=== PATIENT | female | born 2000 | race Two or more races ===

== ENCOUNTER 2022-08-07 23:12 | Emergency (ER) | payer SELFPAY ==
[~2022-08-07] VITALS: Ht 162.6 cm; Wt 67.6 kg
[2022-08-07 23:13] VITALS: BP 109/69
== END 2022-08-08 01:53 | disposition left against medical advice (07) ==
LOC: M ED 23:12
DX: Z53.21 Procedure and treatment not carried out due to patient leaving prior to being seen by health care provider (principal)

== ENCOUNTER 2022-10-07 07:29 | Emergency (ER) | payer OTHER, SELFPAY ==
[~2022-10-07] VITALS: Ht 162.6 cm; Wt 68.6 kg
[2022-10-07] MEDS ORDERED: NS 1,000 ML IV ONE (09:45)
[2022-10-07 10:50] LABS: BASO # 0.1 10^3/uL (0.0-0.2); BASO % 0.8 % (0.0-1.0); EOS # 0.1 10^3/uL (0.0-0.5); EOS % 1.4 % (0.0-3.0); HEMATOCRIT 38.2 % (36.0-47.0); HEMOGLOBIN 12.7 g/dl (12.0-15.5); LYMPH # 2.9 10^3/uL (1.5-5.0); LYMPH % 44.7 % (24.0-44.0); MEAN CORPUSCULAR HEMOGLOBIN 29.1 pg (27.0-33.0); MEAN CORPUSCULAR HGB CONC 33.2 g/dl (32.0-36.5); MEAN CORPUSCULAR VOLUME 87.4 fl (80.0-96.0); MONO # 0.6 10^3/uL (0.0-0.8); MONO % 9.6 % (2.0-8.0); NEUTROPHILS # 2.8 10^3/uL (1.5-8.5); NEUTROPHILS % 43.2 % (36.0-66.0); PLATELET COUNT, AUTOMATED 310 10^3/uL (150-450); RED BLOOD COUNT 4.37 10^6/uL (4.00-5.40); WHITE BLOOD COUNT 6.5 10^3/uL (4.0-10.0)
[2022-10-07 11:19] LABS: LIPASE 36 U/L (12-53)
[2022-10-07 11:23] LABS: HCG, SERUM QUALITATIVE NEGATIVE (NEGATIVE)
[2022-10-07 11:25] LABS: ALBUMIN 3.8 G/DL (3.2-5.2); ALKALINE PHOSPHATASE 97 U/L (46-116); ALT/SGPT 23 U/L (7.0-40); AST/SGOT 23 U/L (<34); BILIRUBIN,DIRECT 0.5 MG/DL (<0.4); BILIRUBIN,TOTAL 1.8 MG/DL (0.3-1.2); BLOOD UREA NITROGEN 12 MG/DL (9-23); CALCIUM LEVEL 8.6 MG/DL (8.5-10.1); CARBON DIOXIDE LEVEL 23 MMOL/L (20-31); CHLORIDE LEVEL 107 MMOL/L (98-107); CREATININE FOR GFR 0.79 MG/DL (0.55-1.30); GLOMERULAR FILTRATION RATE > 60.0 (>60); GLUCOSE, FASTING 89 MG/DL (60-100); POTASSIUM SERUM 4.3 MMOL/L (3.5-5.1); SODIUM LEVEL 138 MMOL/L (136-145); TOTAL PROTEIN 6.7 G/DL (5.7-8.2)
[2022-10-07 15:35] VITALS: BP 126/72
[2022-10-07 15:57] LABS: GC DNA AMPLIFICATION NEGATIVE (NEGATIVE)
== END 2022-10-07 15:37 | disposition home or self-care (01) ==
LOC: M ED 07:29
DX: N93.9 Abnormal uterine and vaginal bleeding, unspecified (principal); M79.18 Myalgia, other site; R10.2 Pelvic and perineal pain; R53.83 Other fatigue; G90.A Postural orthostatic tachycardia syndrome [POTS]; R00.1 Bradycardia, unspecified; F41.9 Anxiety disorder, unspecified; F32.A Depression, unspecified; F12.10 Cannabis abuse, uncomplicated; Z88.0 Allergy status to penicillin

== ENCOUNTER 2023-01-17 19:33 | Emergency (ER) | payer OTHER ==
[~2023-01-17] VITALS: Ht 162.6 cm; Wt 67.7 kg
[2023-01-17 19:34] VITALS: BP 125/75; TEMP 97.4; O2SAT 100
[2023-01-17 20:30] LABS: LIPASE 67 U/L (12-53)
[2023-01-17 20:32] LABS: ALBUMIN 4.1 G/DL (3.2-5.2); ALKALINE PHOSPHATASE 100 U/L (46-116); ALT/SGPT 31 U/L (7.0-40); AST/SGOT 13 U/L (<34); BILIRUBIN,DIRECT 0.4 MG/DL (<0.4); BILIRUBIN,TOTAL 1.1 MG/DL (0.3-1.2); TOTAL PROTEIN 7.1 G/DL (5.7-8.2)
[2023-01-17 20:35] LABS: BASO # 0.1 10^3/uL (0.0-0.2); BASO % 0.5 % (0.0-1.0); EOS # 0.1 10^3/uL (0.0-0.5); EOS % 1.5 % (0.0-3.0); HEMOGLOBIN 13.6 g/dl (12.0-15.5); LYMPH # 3.3 10^3/uL (1.5-5.0); LYMPH % 35.9 % (24.0-44.0); MEAN CORPUSCULAR HEMOGLOBIN 28.6 pg (27.0-33.0); MEAN CORPUSCULAR HGB CONC 33.2 g/dl (32.0-36.5); MEAN CORPUSCULAR VOLUME 86.1 fl (80.0-96.0); MONO # 0.7 10^3/uL (0.0-0.8); MONO % 7.7 % (2.0-8.0); NEUTROPHILS % 54.2 % (36.0-66.0); PLATELET COUNT, AUTOMATED 266 10^3/uL (150-450); RED BLOOD COUNT 4.76 10^6/uL (4.00-5.40); WHITE BLOOD COUNT 9.2 10^3/uL (4.0-10.0)
[2023-01-17] MEDS ORDERED: ACETAMINOPHEN 325 MG TAB PO ONE (20:40)
[2023-01-17 20:48] LABS: BLOOD UREA NITROGEN 13 MG/DL (9-23); CALCIUM LEVEL 8.9 MG/DL (8.5-10.1); CARBON DIOXIDE LEVEL 24 MMOL/L (20-31); CHLORIDE LEVEL 108 MMOL/L (98-107); GLOMERULAR FILTRATION RATE > 60.0 (>60); GLUCOSE, FASTING 115 MG/DL (60-100); POTASSIUM SERUM 3.8 MMOL/L (3.5-5.1); SODIUM LEVEL 138 MMOL/L (136-145)
[2023-01-17 20:51] LABS: HCG, SERUM QUANTITATIVE 11974.3 MIU/ML (<4.2)
== END 2023-01-17 22:34 | disposition home or self-care (01) ==
LOC: M ED 19:33
DX: O26.891 Other specified pregnancy related conditions, first trimester (principal); R10.9 Unspecified abdominal pain; Z88.0 Allergy status to penicillin; Z3A.01 Less than 8 weeks gestation of pregnancy

== ENCOUNTER 2023-01-19 17:54 | Emergency (ER) | payer OTHER ==
[~2023-01-19] VITALS: Ht 162.6 cm; Wt 66.9 kg
[2023-01-19 17:54] VITALS: BP 118/64; TEMP 97.6; O2SAT 99
== END 2023-01-19 19:44 | disposition home or self-care (01) ==
LOC: M ED 17:54
DX: O26.891 Other specified pregnancy related conditions, first trimester (principal); R10.2 Pelvic and perineal pain; Z3A.01 Less than 8 weeks gestation of pregnancy; Z88.0 Allergy status to penicillin

== ENCOUNTER 2023-03-06 09:42 | Emergency (ER) | payer OTHER ==
[~2023-03-06] VITALS: Ht 162.6 cm; Wt 64.3 kg
[2023-03-06 12:00] LABS: BASO % 0.4 % (0.0-1.0); EOS # 0.1 10^3/uL (0.0-0.5); EOS % 0.8 % (0.0-3.0); HEMATOCRIT 38.6 % (36.0-47.0); HEMOGLOBIN 13.1 g/dl (12.0-15.5); LYMPH # 1.9 10^3/uL (1.5-5.0); LYMPH % 22.9 % (24.0-44.0); MEAN CORPUSCULAR HEMOGLOBIN 29.4 pg (27.0-33.0); MEAN CORPUSCULAR HGB CONC 33.9 g/dl (32.0-36.5); MEAN CORPUSCULAR VOLUME 86.7 fl (80.0-96.0); MONO # 0.6 10^3/uL (0.0-0.8); MONO % 7.5 % (2.0-8.0); NEUTROPHILS # 5.7 10^3/uL (1.5-8.5); PLATELET COUNT, AUTOMATED 213 10^3/uL (150-450); RED BLOOD COUNT 4.45 10^6/uL (4.00-5.40); WHITE BLOOD COUNT 8.4 10^3/uL (4.0-10.0)
[2023-03-06 12:30] LABS: LIPASE 51 U/L (12-53)
[2023-03-06 12:31] LABS: AMYLASE 44 U/L (30-118)
[2023-03-06 12:32] LABS: ALBUMIN 3.8 G/DL (3.2-5.2); ALKALINE PHOSPHATASE 73 U/L (46-116); ALT/SGPT 15 U/L (7.0-40); AST/SGOT < 8 U/L (<34); BILIRUBIN,DIRECT 0.6 MG/DL (<0.4); BILIRUBIN,TOTAL 1.7 MG/DL (0.3-1.2); BLOOD UREA NITROGEN 10 MG/DL (9-23); CALCIUM LEVEL 9.1 MG/DL (8.5-10.1); CARBON DIOXIDE LEVEL 22 MMOL/L (20-31); CHLORIDE LEVEL 104 MMOL/L (98-107); CREATININE FOR GFR 0.53 MG/DL (0.55-1.30); GLOMERULAR FILTRATION RATE > 60.0 (>60); GLUCOSE, FASTING 90 MG/DL (60-100); POTASSIUM SERUM 3.9 MMOL/L (3.5-5.1); SODIUM LEVEL 136 MMOL/L (136-145)
[2023-03-06 12:45] LABS: HCG, SERUM QUANTITATIVE 75143.7 MIU/ML (<4.2)
[2023-03-06 14:12] VITALS: BP 99/55; TEMP 96.2; O2SAT 100
== END 2023-03-06 14:16 | disposition home or self-care (01) ==
LOC: M ED 09:42
DX: O26.891 Other specified pregnancy related conditions, first trimester (principal); R10.2 Pelvic and perineal pain; G90.A Postural orthostatic tachycardia syndrome [POTS]; Z88.0 Allergy status to penicillin; Z3A.12 12 weeks gestation of pregnancy

== ENCOUNTER 2023-05-01 17:58 | Outpatient (CLI) | payer OTHER ==
[~2023-05-01] VITALS: Ht 162.6 cm; Wt 66.6 kg
[2023-05-01] MEDS ORDERED: PRENTAB9 PO (18:23)
[2023-05-01] MEDS ORDERED: HOME MED LIST COMPLETE! XX SCH (18:25)
[2023-05-01 18:29] VITALS: BP 104/56
[2023-05-01] MEDS ORDERED: diphenhydrAMINE 25MG CAP PO ONE (19:05)
[2023-05-01 19:27] VITALS: BP 141/64
[2023-05-01 19:28] VITALS: BP 111/57
[2023-05-01 19:55] LABS: ALBUMIN 3.1 G/DL (3.2-5.2); ALKALINE PHOSPHATASE 79 U/L (46-116); ALT/SGPT 36 U/L (7.0-40); AST/SGOT 30 U/L (<34); BILIRUBIN,TOTAL 0.8 MG/DL (0.3-1.2); BLOOD UREA NITROGEN 8 MG/DL (9-23); CALCIUM LEVEL 8.6 MG/DL (8.5-10.1); CARBON DIOXIDE LEVEL 24 MMOL/L (20-31); CHLORIDE LEVEL 105 MMOL/L (98-107); CREATININE FOR GFR 0.49 MG/DL (0.55-1.30); GLOMERULAR FILTRATION RATE > 60.0 (>60); GLUCOSE, FASTING 88 MG/DL (60-100); POTASSIUM SERUM 4.9 MMOL/L (3.5-5.1); SODIUM LEVEL 137 MMOL/L (136-145); TOTAL PROTEIN 6.4 G/DL (5.7-8.2)
== END 2023-05-01 19:28 | disposition home or self-care (01) ==
LOC: M LDO 17:58
PROVIDERS: ATTEND Obstetrics & Gynecology
DX: O99.712 Diseases of the skin and subcutaneous tissue complicating pregnancy, second trimester (principal); L29.9 Pruritus, unspecified; Z3A.21 21 weeks gestation of pregnancy; Z88.0 Allergy status to penicillin
CPT/HCPCS: 36415; 59025; 80053; 82239; G0463

== ENCOUNTER 2023-05-09 10:59 | Outpatient (CLI) | payer OTHER ==
[~2023-05-09 10:59] MED LIST: PRENTAB9 PO
[2023-05-09 12:03] LABS: HEMATOCRIT 34.9 % (36.0-47.0); HEMOGLOBIN 12.1 g/dl (12.0-15.5); MEAN CORPUSCULAR HEMOGLOBIN 30.7 pg (27.0-33.0); MEAN CORPUSCULAR HGB CONC 34.7 g/dl (32.0-36.5); MEAN CORPUSCULAR VOLUME 88.6 fl (80.0-96.0); PLATELET COUNT, AUTOMATED 185 10^3/uL (150-450); RED BLOOD COUNT 3.94 10^6/uL (4.00-5.40); WHITE BLOOD COUNT 11.5 10^3/uL (4.0-10.0)
[2023-05-09] MEDS ORDERED: FLUCONAZOLE 50MG TABLET PO ONE (12:05)
[2023-05-09 12:31] LABS: APPEARANCE, URINE HAZY (CLEAR); BACTERIA, URINE AUTO NEGATIVE (NEGATIVE); BILIRUBIN, URINE AUTO NEGATIVE (NEGATIVE); BLOOD, URINE BLOOD NEGATIVE (NEGATIVE); COLOR, URINE YELLOW (YELLOW); GLUCOSE, URINE (UA) AUTO NEGATIVE (NEGATIVE); KETONE, URINE AUTO NEGATIVE (NEGATIVE); LEUKOCYTE ESTERASE, URINE AUTO 3+ (NEGATIVE); MUCUS, URINE SMALL (NEGATIVE); NITRITE, URINE AUTO NEGATIVE (NEGATIVE); PROTEIN, URINE AUTO NEGATIVE (NEGATIVE); RBC, URINE AUTO 0 /HPF (0-3); SPECIFIC GRAVITY URINE AUTO 1.016 (1.002-1.035); SQUAMOUS EPITHELIAL CELL UR AU 8 /HPF (0-6); UROBILINOGEN, URINE AUTO 0.2 mg/dL (0.0-2.0); WBC, URINE AUTO 8 /HPF (0-3)
[2023-05-09] MEDS ORDERED: FOSFOMYCIN TROMETHAMINE 3 GM POWDER PACKET (MONUROL) PO ONE (13:00)
[2023-05-09 14:13] LABS: GC DNA AMPLIFICATION NEGATIVE (NEGATIVE)
[2023-05-10 10:43] LABS: LIPASE 33 U/L (13-60)
[2023-05-10 10:44] LABS: ALBUMIN 3.7 G/DL (3.9-5.0); ALKALINE PHOSPHATASE 80 U/L (35-104); ALT/SGPT 11 U/L (1-33); AST/SGOT 12 U/L (5-40); BILIRUBIN,TOTAL 0.7 MG/DL (0.2-1.3); BLOOD UREA NITROGEN 8 MG/DL (7-21); CALCIUM LEVEL 9.1 MG/DL (8.4-10.2); CARBON DIOXIDE LEVEL 22 MEQ/L (22-30); CHLORIDE LEVEL 104 MEQ/L (98-107); CREATININE FOR GFR 0.4 MG/DL (0.7-1.5); GLOMERULAR FILTRATION RATE > 60.0 (>60); GLUCOSE, FASTING 79 MG/DL (70-99); POTASSIUM SERUM 4.3 MEQ/L (3.6-5.0); SODIUM LEVEL 137 MEQ/L (134-153); TOTAL PROTEIN 6.3 G/DL (6.3-8.2)
== END 2023-05-09 13:02 | disposition home or self-care (01) ==
LOC: M LDO 10:59
PROVIDERS: ATTEND Obstetrics & Gynecology
DX: O23.592 Infection of other part of genital tract in pregnancy, second trimester (principal); O23.42 Unspecified infection of urinary tract in pregnancy, second trimester; Z3A.22 22 weeks gestation of pregnancy; Z88.0 Allergy status to penicillin
CPT/HCPCS: 59025; 76815; 80053; 81001; 83690; 85027; 87661; 87810; 87850; G0463

== ENCOUNTER 2023-06-07 13:39 | Outpatient (CLI) | payer OTHER ==
[~2023-06-07] VITALS: Ht 162.6 cm; Wt 69.4 kg
[2023-06-07 14:02] VITALS: BP 116/63
[2023-06-07] MEDS ORDERED: HOME MED LIST COMPLETE! XX SCH (14:10)
== END 2023-06-07 14:49 | disposition home or self-care (01) ==
LOC: M LDO 13:39
PROVIDERS: ATTEND Obstetrics & Gynecology
DX: O26.892 Other specified pregnancy related conditions, second trimester (principal); M79.605 Pain in left leg; Z3A.25 25 weeks gestation of pregnancy; Z88.0 Allergy status to penicillin
CPT/HCPCS: 59025; G0463

== ENCOUNTER → 2023-10-22 | Outpatient (REF) | LOC: M LAB 13:18 | PROVIDERS: ATTEND Nurse Practitioner Adult Health | DX: Z02.89 Encounter for other administrative examinations (principal) ==

== ENCOUNTER 2024-03-09 09:22 | Emergency (ER) | payer OTHER ==
[~2024-03-09] VITALS: Ht 162.6 cm; Wt 74.3 kg
[2024-03-09 11:08] LABS: BASO # 0.1 10^3/uL (0.0-0.2); BASO % 0.9 % (0.0-1.0); EOS # 0.1 10^3/uL (0.0-0.5); EOS % 1.4 % (0.0-3.0); HEMATOCRIT 39.7 % (36.0-47.0); HEMOGLOBIN 13.1 g/dl (12.0-15.5); LYMPH # 2.6 10^3/uL (1.5-5.0); LYMPH % 40.3 % (24.0-44.0); MEAN CORPUSCULAR HEMOGLOBIN 28.7 pg (27.0-33.0); MEAN CORPUSCULAR VOLUME 86.9 fl (80.0-96.0); MONO # 0.6 10^3/uL (0.0-0.8); MONO % 9.2 % (2.0-8.0); NEUTROPHILS # 3.1 10^3/uL (1.5-8.5); PLATELET COUNT, AUTOMATED 228 10^3/uL (150-450); RED BLOOD COUNT 4.57 10^6/uL (4.00-5.40); WHITE BLOOD COUNT 6.4 10^3/uL (4.0-10.0)
[2024-03-09] MEDS: KETOROLAC 30 MG/ML 1ML VIAL IV ONE (11:26)
[2024-03-09 11:42] LABS: LIPASE 54 U/L (12-53)
[2024-03-09 11:43] LABS: ALKALINE PHOSPHATASE 102 U/L (46-116); ALT/SGPT 22 U/L (7.0-40); AST/SGOT 15 U/L (<34); BILIRUBIN,DIRECT 0.4 MG/DL (<0.4); BILIRUBIN,TOTAL 1.1 MG/DL (0.3-1.2); BLOOD UREA NITROGEN 15 MG/DL (9-23); CALCIUM LEVEL 9.2 MG/DL (8.5-10.1); CARBON DIOXIDE LEVEL 24 MMOL/L (20-31); CHLORIDE LEVEL 109 MMOL/L (98-107); CREATININE FOR GFR 0.74 MG/DL (0.55-1.30); GLOMERULAR FILTRATION RATE > 60.0 (>60); GLUCOSE, FASTING 97 MG/DL (60-100); HCG, SERUM QUANTITATIVE < 2.6 MIU/ML (<4.2); POTASSIUM SERUM 4.3 MMOL/L (3.5-5.1); SODIUM LEVEL 138 MMOL/L (136-145); TOTAL PROTEIN 7.1 G/DL (5.7-8.2)
[2024-03-09] MEDS ORDERED: ISOVUE-370 76% 100ML VIAL As Ordered ONE (12:00)
[2024-03-09] MEDS ORDERED: KETO10TAB PO (12:50)
[2024-03-09 12:56] VITALS: BP 112/55; TEMP 96.8; O2SAT 100
== END 2024-03-09 13:02 | disposition home or self-care (01) ==
LOC: M ED 09:22
DX: R10.84 Generalized abdominal pain (principal); N28.1 Cyst of kidney, acquired; G90.A Postural orthostatic tachycardia syndrome [POTS]; Z88.0 Allergy status to penicillin; Z79.899 Other long term (current) drug therapy; Z97.5 Presence of (intrauterine) contraceptive device
CPT/HCPCS: 74177; 76856; 80048; 80076; 81001; 83690; 84702; 85025; 87086; 93976; 96374; 99284; J1885; Q9967

== ENCOUNTER 2024-03-30 03:41 | Emergency (ER) | payer OTHER ==
[~2024-03-30] VITALS: Ht 162.6 cm; Wt 73.7 kg
[~2024-03-30 03:41] MED LIST changes: +KETO10TAB PO
[2024-03-30 03:42] VITALS: BP 104/59; TEMP 98.5; O2SAT 98
== END 2024-03-30 05:29 | disposition left against medical advice (07) ==
LOC: M ED 03:41
DX: Z53.21 Procedure and treatment not carried out due to patient leaving prior to being seen by health care provider (principal)

== ENCOUNTER 2024-06-01 07:25 | Emergency (ER) | payer OTHER ==
[~2024-06-01] VITALS: Ht 162.6 cm; Wt 74.8 kg
[2024-06-01 10:02] LABS: BASO % 0.4 % (0.0-1.0); EOS # 0.1 10^3/uL (0.0-0.5); EOS % 1.2 % (0.0-3.0); HEMATOCRIT 40.8 % (36.0-47.0); HEMOGLOBIN 13.7 g/dl (12.0-15.5); LYMPH # 3.1 10^3/uL (1.5-5.0); LYMPH % 34.3 % (24.0-44.0); MEAN CORPUSCULAR HEMOGLOBIN 29.5 pg (27.0-33.0); MEAN CORPUSCULAR HGB CONC 33.6 g/dl (32.0-36.5); MEAN CORPUSCULAR VOLUME 87.9 fl (80.0-96.0); MONO # 0.9 10^3/uL (0.0-0.8); MONO % 9.6 % (2.0-8.0); NEUTROPHILS # 4.9 10^3/uL (1.5-8.5); NEUTROPHILS % 54.3 % (36.0-66.0); PLATELET COUNT, AUTOMATED 224 10^3/uL (150-450); RED BLOOD COUNT 4.64 10^6/uL (4.00-5.40); WHITE BLOOD COUNT 9.1 10^3/uL (4.0-10.0)
[2024-06-01 10:28] LABS: LIPASE 49 U/L (12-53)
[2024-06-01 10:30] LABS: ALKALINE PHOSPHATASE 95 U/L (35-104); ALT/SGPT 15 U/L (7.0-40); AST/SGOT 9 U/L (<34); BILIRUBIN,DIRECT 0.4 MG/DL (<0.4); BILIRUBIN,TOTAL 1.2 MG/DL (0.3-1.2); BLOOD UREA NITROGEN 14 MG/DL (9-23); CALCIUM LEVEL 9.3 MG/DL (8.5-10.1); CARBON DIOXIDE LEVEL 24 MMOL/L (20-31); CHLORIDE LEVEL 108 MMOL/L (98-107); GLOMERULAR FILTRATION RATE > 60.0 (>60); GLUCOSE, FASTING 99 MG/DL (60-100); POTASSIUM SERUM 4.1 MMOL/L (3.5-5.1); SODIUM LEVEL 139 MMOL/L (136-145); TOTAL PROTEIN 7.5 G/DL (5.7-8.2)
[2024-06-01 10:32] LABS: HCG, SERUM QUANTITATIVE < 2.6 MIU/ML (<4.2)
[2024-06-01] MEDS ORDERED: HOME MED LIST COMPLETE! XX SCH (11:05)
[2024-06-01 12:15] VITALS: BP 108/62
[2024-06-01 12:16] VITALS: TEMP 97.6; O2SAT 98
[2024-06-01] MEDS ORDERED: IBUP-1022 PO (12:16)
== END 2024-06-01 12:32 | disposition home or self-care (01) ==
LOC: M ED 07:25
DX: N83.291 Other ovarian cyst, right side (principal); G90.A Postural orthostatic tachycardia syndrome [POTS]; Z88.0 Allergy status to penicillin; Z97.5 Presence of (intrauterine) contraceptive device; Z79.1 Long term (current) use of non-steroidal anti-inflammatories (NSAID)

== ENCOUNTER 2024-07-02 15:03 | Emergency (ER) | payer OTHER ==
[~2024-07-02] VITALS: Ht 162.6 cm; Wt 76.0 kg
[~2024-07-02 15:03] MED LIST changes: +IBUP-1022 PO
[2024-07-02 16:20] LABS: URINE PREG TEST NEGATIVE (NEGATIVE)
[2024-07-02] MEDS ORDERED: FLUC150T9 PO (16:26)
[2024-07-02 16:29] VITALS: BP 118/84; TEMP 98.6; O2SAT 99
[2024-07-02 17:32] LABS: Trichomonas vaginalis (AMP) NOT DETECTED (NEGATIVE)
[2024-07-02 17:56] LABS: GC DNA AMPLIFICATION NEGATIVE (NEGATIVE)
== END 2024-07-02 16:37 | disposition home or self-care (01) ==
LOC: M ED 15:03
DX: B37.31 Acute candidiasis of vulva and vagina (principal); Z88.0 Allergy status to penicillin; Z79.2 Long term (current) use of antibiotics

== ENCOUNTER 2024-07-25 16:37 | Emergency (ER) | payer OTHER ==
[~2024-07-25] VITALS: Ht 162.6 cm; Wt 77.5 kg
[~2024-07-25 16:37] MED LIST changes: +FLUC150T9 PO
[2024-07-25 17:36] LABS: BASO # 0.1 10^3/uL (0.0-0.2); BASO % 0.6 % (0.0-1.0); EOS # 0.1 10^3/uL (0.0-0.5); EOS % 1.2 % (0.0-3.0); HEMATOCRIT 44.5 % (36.0-47.0); LYMPH # 2.9 10^3/uL (1.5-5.0); LYMPH % 37.6 % (24.0-44.0); MEAN CORPUSCULAR HEMOGLOBIN 29.9 pg (27.0-33.0); MEAN CORPUSCULAR HGB CONC 33.7 g/dl (32.0-36.5); MEAN CORPUSCULAR VOLUME 88.6 fl (80.0-96.0); MONO # 0.7 10^3/uL (0.0-0.8); MONO % 9.3 % (2.0-8.0); PLATELET COUNT, AUTOMATED 270 10^3/uL (150-450); RED BLOOD COUNT 5.02 10^6/uL (4.00-5.40); WHITE BLOOD COUNT 7.7 10^3/uL (4.0-10.0)
[2024-07-25 17:43] LABS: KETONE, URINE AUTO RFX TRACE mg/dL (NEGATIVE); MUCUS, URINE RFX MODERATE (NEGATIVE); NITRITE, URINE AUTO RFX NEGATIVE (NEGATIVE); RBC, URINE AUTO RFX 0 /HPF (0-3); SQUAM EPITHELIAL CELL UR AURFX 32 /HPF (0-6)
[2024-07-25 17:44] LABS: LEUKOCYTE ESTERASE UR AUTO RFX 1+ (NEGATIVE)
[2024-07-25 18:04] LABS: LIPASE 69 U/L (12-53)
[2024-07-25 18:06] LABS: ALBUMIN 4.3 G/DL (3.2-5.2); ALKALINE PHOSPHATASE 98 U/L (35-104); ALT/SGPT 16 U/L (7.0-40); AST/SGOT 14 U/L (<34); BILIRUBIN,DIRECT 0.5 MG/DL (<0.4); BILIRUBIN,TOTAL 1.6 MG/DL (0.3-1.2); BLOOD UREA NITROGEN 15 MG/DL (9-23); CALCIUM LEVEL 9.8 MG/DL (8.5-10.1); CARBON DIOXIDE LEVEL 27 MMOL/L (20-31); CHLORIDE LEVEL 107 MMOL/L (98-107); CREATININE FOR GFR 0.72 MG/DL (0.55-1.30); GLOMERULAR FILTRATION RATE > 60.0 (>60); GLUCOSE, FASTING 85 MG/DL (60-100); POTASSIUM SERUM 4.3 MMOL/L (3.5-5.1); SODIUM LEVEL 141 MMOL/L (136-145); TOTAL PROTEIN 7.9 G/DL (5.7-8.2)
[2024-07-25 18:11] LABS: HCG, SERUM QUALITATIVE NEGATIVE (NEGATIVE)
[2024-07-25] MEDS: KETOROLAC 30 MG/ML 1ML VIAL IV ONE (19:14)
[2024-07-25] MEDS ORDERED: ISOVUE-370 76% 100ML VIAL As Ordered ONE (19:15)
[2024-07-25 19:57] VITALS: BP 115/73; TEMP 98.3; O2SAT 99
[2024-07-25] MEDS ORDERED: COLA100C5 PO (20:12)
== END 2024-07-25 20:32 | disposition home or self-care (01) ==
LOC: M ED 16:37
DX: K57.30 Diverticulosis of large intestine without perforation or abscess without bleeding (principal); K59.00 Constipation, unspecified; N28.1 Cyst of kidney, acquired; Z79.899 Other long term (current) drug therapy; Z97.5 Presence of (intrauterine) contraceptive device
CPT/HCPCS: 74177; 80048; 80076; 81001; 83690; 84703; 85025; 87086; 96374; 99284; J1885; Q9967

== ENCOUNTER 2024-09-15 13:51 | Emergency (ER) | payer OTHER ==
[~2024-09-15] VITALS: Ht 162.6 cm; Wt 72.2 kg
[~2024-09-15 13:51] MED LIST changes: +COLA100C5 PO
[2024-09-15] MEDS: IPRATROPIUM 0.5MG/ALBUTEROL 2.5MG INH SOL UD 3ML (DUONEB) NEB ONE (16:21)
[2024-09-15] MEDS ORDERED: VENTAER INH (16:31)
[2024-09-15 16:37] VITALS: BP 127/71; TEMP 99.9; O2SAT 97
== END 2024-09-15 16:40 | disposition home or self-care (01) ==
LOC: M ED 13:51
DX: B34.2 Coronavirus infection, unspecified (principal); J06.9 Acute upper respiratory infection, unspecified; G90.A Postural orthostatic tachycardia syndrome [POTS]; Z88.0 Allergy status to penicillin; Z79.52 Long term (current) use of systemic steroids